=== PATIENT | female | born 2000 | race Two or more races ===

== ENCOUNTER 2023-03-21 18:00 | Inpatient (IN) | payer OTHER, SELFPAY ==
[2023-03-21 18:31] VITALS: BP 115/78; PULSE 83; TEMP 36.9
[2023-03-21 19:12] LABS: Hematocrit 33.3 % (36.0-48.0); Hemoglobin 11.3 g/dL (12.0-16.0); Mean Corpuscular HGB Conc 33.9 g/dL (29.9-35.2); Mean Corpuscular Hemoglobin 30.3 pg (26.7-34.0); Mean Corpuscular Volume 89.3 fL (81.0-99.0); Mean Platelet Volume 12.9 fL (9.5-13.5); Platelet Count 134 10^3/uL (150-450); Red Blood Count 3.73 10^6/uL (4.20-5.40); Red Cell Distribution Width 13.1 % (11.0-15.0); White Blood Count 9.2 10^3/uL (4.0-11.0)
[2023-03-21 19:21] LABS: Amphetamine Screen Urine NEGATIVE (NEGATIVE); Barbiturates Screen Urine NEGATIVE (NEGATIVE); Benzodiazepines Screen Urine NEGATIVE (NEGATIVE); Buprenorphine Screen Urine NEGATIVE (NEGATIVE); Cannabinoid Screen Urine NEGATIVE (NEGATIVE); Cocaine Screen Urine NEGATIVE (NEGATIVE); Methadone Screen Urine NEGATIVE (NEGATIVE); Methamphetamines Screen Urine NEGATIVE (NEGATIVE); Opiate Screen Urine NEGATIVE (NEGATIVE); Oxycodone Screen Urine NEGATIVE (NEGATIVE); Phencyclidine Screen Urine NEGATIVE (NEGATIVE); Tricyclic Antidepressant Urine NEGATIVE (NEGATIVE)
[2023-03-21] MEDS: 0.9 % SODIUM CHLORIDE 500 ML IV (19:25)
--- NOTE | 2023-03-21 20:05 | US_ITS ---
[address] [address] Patient Name: BRYANNA HUI MRN: [id number] date: 2000 Sex: F Assigned Patient Location: [facility] Current Patient Location: [facility] Accession/Order Number: [id number] Exam Date: 03/21/2023 20:30 Report Date: 03/21/2023 22:00 At the request of: STEPHEN BROOKS Procedure: US OB BPP wo non-stress EXAM: US OB BPP wo non-stress HISTORY: tachycardia COMPARISON: None. TECHNIQUE: Limited OB ultrasound is performed for evaluation of biophysical profile. Multiple grayscale and color images are submitted for review. FINDINGS: Single live intrauterine is seen with cephalic presentation. Biophysical profile: breathing movements: 2 Gross body movements: 2 tone: 2 Qualitative amniotic fluid volume: 2 Total biophysical profile: 8 out of 8. Amniotic fluid index measures 12.6 cm, within normal limits. heart rate is 164 beats per minute. Gestation age by dates is 40 weeks 5 days, with estimated date of delivery 03/16/2023. US/US OB BPP wo non-stress IMPRESSION: Single live intrauterine with cephalic presentation. Biophysical profile score is 8 out of 8. heart rate is 164 beats per minute. Electronically authenticated by: COOPER HOLMAN Date: 03/21/2023 22:00
--- NOTE | 2023-03-21 20:08 | P.OBHP_ITS ---
OB - H&P: HPI History of Present Illness Chief complaint: INDUCTION : 2 Para: 1 Date of last menstrual period: 06-09-22 Gestational age based on last menstrual period: 40.5 Indications for induction: other (elective IOL for post dates ) History of Present Dating criteria: LMP confirmed by 1st trimester US care: good care Ultrasounds: normal 1st trimester US and normal mid trimester US complications comment: anemia in Medical complications OB: none Labs Blood type: O (+) positive Rubella: immune RPR/VDLR: nonreactive GBS status: negative HBsAG: negative Review of Systems ROS Status of ROS 10 or more systems reviewed and unremarkable except as noted in history and below [facility] Medical History (Updated 03/21/23 @ 20:13 by STEPHEN BROOKS APRN, NORA) Surgical History (Updated 03/21/23 @ 18:37 by Anastasiya Vance RN) Meds Home Medications and Allergies Home Medications Medication Instructions Recorded Confirmed Type docusate sodium 100 mg capsule 100 mg PO DAILY 03/21/23 03/21/23 History (Colace) famotidine 20 mg tablet mg 03/21/23 History ferrous sulfate 325 mg (65 mg 325 mg PO DAILY 03/21/23 03/21/23 History iron) tablet (FeroSul) Allergies Allergy/AdvReac Type Severity Reaction Status Date / Time No Known Drug Allergies Allergy Verified 03/21/23 18:13 Exam Constitutional Vital Signs, click to edit/add: Last Vital Signs Temp 98.4 F 03/21/23 18:31 Pulse 83 03/21/23 18:31 BP 115/78 03/21/23 18:31 Documenting provider has reviewed patient's vital signs: yes Common normals: no apparent distress General appearance: cooperative Orientation/consciousness: Yes awake, Yes oriented to person, Yes oriented to place and Yes oriented to time HENMT Common normals: normocephalic Neck & C-Spine Common normals: full ROM Lymph Lymphatic: no lymphadenopathy noted Chest Common normals: inspection of chest normal Respiratory Common normals: normal respiratory effort Effort & inspection: able to speak in complete sentences Auscultation: clear to auscultation bilaterally Cardio Common normals: regular rate and regular rhythm Rate: regular rate Rhythm: regular rhythm GI Common normals: Normal to inspection, nondistended, normoactive bowel sounds present Inspection: normal to inspection Palpation: other (gravid ) Extremity Common normals: normal to inspection and full ROM Neuro Common normals: oriented x3 Sensorium/orientation: awake, alert, oriented to person, oriented to place and oriented to time Psych Common normals: mental status grossly normal, thought process normal, cooperative, affect normal and speech normal Appearance: grossly normal Attitude: calm Results Labs Labs: Short CBC 03/21/23 Range/Units 18:50 WBC 9.2 (4.0-11.0) 10^3/uL Hgb 11.3 L (12.0-16.0) g/dL Hct 33.3 L (36.0-48.0) % Plt Count 134 L (150-450) 10^3/uL OB - A/P Assessment and Plan (1) Term :
[2023-03-21] MEDS: CALCIUM CARBONATE 500 MG (200MG ELEMENTAL) TAB CHEW PO ×2 (20:19→22:48)
--- NOTE | 2023-03-21 20:37 | PM.EN ---
Event Note Event Note: RN called me earlier to report patient had elevated baseline. Orders given per telephone to give IV bolus, hold cervidil. 1940 arrived on unit to assess patient and EFM tracing.Baseline is 170's up to 180's with occasional decelerations noted. Variability is moderate. Decel type is indeterminant due to patient not dino. Patient denies contractions or pain, states since you checked me in the office today, I have felt constant cramping. patient is afebrile. [address] Robison to update him on patients EFM tracing and baseline. 2009 Stat BPP orders placed for BPP at bedside.
[2023-03-21] MEDS: DINOPROSTONE 10 MG VAG INSERT.ER VAGINAL (22:46)
--- NOTE | 2023-03-21 22:46 | PM.EN ---
Event Note Event Note: CNM to room. Category 1 EFM tracing. mom is dino irregularly and states she feels the same cramping as before. SVE fingertip, soft, -3 Cervidil placed per this provider vaginally and in posterior fornix. Patient tolerated placement well.
[2023-03-21 22:49] VITALS: BP 117/77; PULSE 96
[2023-03-21 23:04] VITALS: BP 105/64; PULSE 80
[2023-03-21 23:19] VITALS: BP 106/60; PULSE 85
[2023-03-21 23:34] VITALS: BP 107/63; PULSE 77
[2023-03-21 23:50] VITALS: BP 108/69; PULSE 82
[2023-03-22] VITALS (57 sets, daily range): BP systolic 93–176; BP diastolic 51–86; PULSE 62–120; RESP 16; TEMP 36.5
[2023-03-22] MEDS: CALCIUM CARBONATE 500 MG (200MG ELEMENTAL) TAB CHEW PO ×2 (04:28→11:25)
[2023-03-22] MEDS: OXYTOCIN/0.9 % SODIUM CHLORIDE 10 UNITS/500 ML PLAST..BAG 6 UNIT IV (12:02)
[2023-03-22] MEDS: 0.9 % SODIUM CHLORIDE 1,000 ML 125 ML IV (14:35)
[2023-03-22] MEDS: FENTANYL CITRATE/PF 100 MCG/2 ML VIAL EPIDURAL (14:35)
[2023-03-22] MEDS: ROPIVACAINE HCL/PF 400 MG/200 ML PREMIX 10 MG EPIDURAL (14:37)
--- NOTE | 2023-03-22 19:06 | PM.OBPRCVD ---
Procedure Procedure: events: Labor Induction, Labor Augmentation and Meconium Stained Fluid Intrapartal events: None Induction method: artificial rupture of membranes Delivery augmentation: rupture of membranes Delivery monitor: external FHT and external uterine Route of delivery: Episiotomy Description: none Laceration description: perineal - 2nd degree Delivery repair: Vicryl and other (Dr Robison called in to repair ) Estimated blood loss (mL): 350 Anesthesia type: Epidural Disposition: no change Infant Delivery date: 03/22/23 Gender: female presentation: vertex Placental delivery description: Spontaneous cord description: 3 Vessels heart rate - 1 minute: 100 bpm or Greater respiratory effort - 1 minute: Spontaneous/Strong Cry muscle tone - 1 minute: Active Movement reflex response - 1 minute: Minimal Response color - 1 minute: Bluish Hands or Feet total score - 1 minute: 8 heart rate - 5 minute: 100 bpm or Greater respiratory effort - 5 minute: Spontaneous/Strong Cry muscle tone - 5 minute: Active Movement reflex response - 5 minute: Prompt Response color - 5 minute: Bluish Hands or Feet total score - 5 minute: 9 Labor State Duration Labor - Stage 3 Duration: 1 minutes Total Length of Latency: 4 hours and 12 minutes
--- NOTE | 2023-03-22 20:27 | W.PC.ACHO ---
Registration Status: ADM IN Primary Language: Cuban Preferred Language: Cuban Active Medications Generic Name Dose Route Start Last Admin Trade Name Freq PRN Reason Stop Dose Admin Acetaminophen 650 mg 03/22/23 18:58 Acetaminophen 325 Mg Tablet PO Q6H PRN Mild Pain Al Hydroxide/Mg Hydroxide 2,400 mg 03/22/23 18:58 Magnesium Hydroxide 2,400 Mg/10 Ml Oral.Susp PO Q6H PRN Dyspepsia Benzocaine/Menthol 1 applic 03/22/23 18:58 Benzocaine/Menthol 85 Gram Carson Bottle TOPICAL Q2H PRN Pain Calcium Carbonate 500 mg 03/21/23 18:32 03/22/23 11:25 Calcium Carbonate 500 Mg (200mg Elemental) Tab Chew PO 500 mg TID PRN Administration Heartburn Carboprost Tromethamine 250 mcg 03/21/23 18:13 Carboprost Tromethamine 250 Mcg/Ml 1 Ml Vial IM 03/23/23 18:13 Q15M PRN Bleeding Diphenhydramine HCl 25 mg 03/22/23 14:28 Diphenhydramine Hcl 50 Mg/Ml (1ml) Vial IV 03/23/23 14:29 Q6H PRN Itching Diphtheria/Pertussis/Tetanus Vacc 0.5 ml 03/24/23 09:00 Adacel Diph,Pertuss(Acell),Tet Vac/Pf 0.5 Ml Adult Syringe IM 03/24/23 09:01 .ONCE ONE Ephedrine Sulfate 5 mg 03/22/23 14:28 Ephedrine Sulfate 50 Mg/Ml Vial IV 03/23/23 14:29 Q5M PRN Blood Pressure - Low Fentanyl Citrate 100 mcg 03/22/23 14:28 03/22/23 14:35 Fentanyl Citrate/Pf 100 Mcg/2 Ml Vial EPIDURAL 03/23/23 14:28 100 mcg Q4H PRN Administration Pain Sodium Chloride 1,000 mls @ 125 mls/hr 03/21/23 19:00 03/22/23 19:14 Sodium Chloride 0.9% 1,000 Ml IV Infused Q8H HAKAN Infusion Oxytocin/Sodium Chloride 10 units in 500 mls @ 6 mls/hr 03/22/23 12:00 03/22/23 17:25 Pitocin 10 Unit/500 Ml-Ns IV Infused Q24H HAKAN Infusion Protocol 2 MILLIUNIT/MIN Ropivacaine/Sodium Chloride 400 mg in 200 mls @ 6 mls/hr 03/22/23 14:30 03/22/23 14:37 Naropin 0.2% 400 Mg/200 Ml Bag EPIDURAL 03/23/23 14:28 10 mls/hr Q24H HAKAN 10 mls/hr Administration Oxytocin 20 unit/ Sodium 1,002 mls @ 125 mls/hr 03/22/23 19:00 Chloride IV 03/23/23 02:59 Q8H HAKAN Ibuprofen 800 mg 03/22/23 22:00 Ibuprofen 400 Mg Tablet PO TID HAKAN Lidocaine 5 ml 03/21/23 18:13 Lidocaine Viscous 2% 15 Ml Topical Solution TOPICAL Q2H PRN Pain Lidocaine 1 ml 03/21/23 18:13 Lidocaine Hcl 1% 200 Mg/20 Ml Mdv INJ Q2H PRN Pain Lidocaine 5 ml 03/22/23 14:28 Lidocaine Hcl 2% Pf 100 Mg/5 Ml Vial INJ 03/23/23 14:28 Q1H PRN numbing for epidural needle Measles/Mumps/Rubella Vaccine Live 0.5 ml 03/24/23 09:00 Measles,Mumps,Rubella Vacc/Pf 0.5 Ml Vial SQ 03/24/23 09:01 .ONCE ONE Methylergonovine Maleate 0.2 mg 03/21/23 18:13 Methylergonovine Maleate 0.2 Mg Tablet PO 03/23/23 18:13 Q4H PRN Uterine Contractility/Contract Methylergonovine Maleate 0.2 mg 03/21/23 18:13 Methylergonovine Maleate 0.2 Mg/Ml Ampule IM 03/23/23 18:13 ONCE PRN Uterine Contractility/Contract Misoprostol 600 mcg 03/21/23 18:13 Misoprostol 100 Mcg Tablet PO 03/23/23 18:13 ONCE PRN Uterine Bleeding Misoprostol 800 mcg 03/21/23 18:13 Misoprostol 100 Mcg Tablet SL 03/23/23 18:13 ONCE PRN Uterine Bleeding Misoprostol 1,000 mcg 03/21/23 18:13 Misoprostol 100 Mcg Tablet AL 03/23/23 18:13 ONCE PRN Uterine Bleeding Naloxone HCl 0.4 mg 03/22/23 14:28 Naloxone Hcl 0.4 Mg/Ml Vial IV 03/23/23 14:29 ONCE PRN resp depression Ondansetron HCl 4 mg 03/21/23 18:13 Ondansetron Pf 4 Mg/2 Ml Vial IV Q6H PRN Nausea And Vomiting Ondansetron HCl 4 mg 03/21/23 18:13 Ondansetron 4 Mg Rapdis Tablet SL Q6H PRN Nausea And Vomiting Oxytocin 10 unit 03/21/23 18:13 Oxytocin 10 Unit/Ml Vial IM 03/23/23 18:13 ONCE PRN Bleeding Simethicone 80 mg 03/22/23 18:58 Simethicone 80 Mg Tab.Chew PO QID PRN Abdominal Distention Temazepam 15 mg 03/22/23 18:58 Temazepam 15 Mg Capsule PO QHS PRN Sleep Witch Ni/Glycerin 1 pad 03/22/23 18:58 Glycerin/Witch Ni Pads TOPICAL Q2H PRN Pain Zolpidem Tartrate 5 mg 03/21/23 18:32 Zolpidem Tartrate 5 Mg Tablet PO QHS PRN insomnia Diet Category Date Time Status Regular Consistency Diet Diet 03/22/23 Dinner Active Renal Bladder Pattern Continent Catheter Date Urinary Catheter Removed 03/22/23 Date Urinary Catheter Removed 03/22/23 Date Urinary Catheter Removed 03/22/23
[2023-03-22] MEDS: IBUPROFEN 400 MG TABLET 800 MG PO (23:21)
[2023-03-23 06:05] LABS: Basophils Percent Auto 0.2 % (0.2-2.0); Eosinophils Percent Auto 0.4 % (0.9-7.0); Hematocrit 32.4 % (36.0-48.0); Hemoglobin 10.6 g/dL (12.0-16.0); Immature Granulocytes Abs Auto 0.06 10^3/uL (0.00-0.03); Immature Granulocytes Pct Auto 0.5 % (0.0-0.5); Lymphocytes Absolute Auto 1.6 10^3/uL (1.2-3.8); Lymphocytes Percent Auto 14.5 % (20.5-60.0); Mean Corpuscular HGB Conc 32.7 g/dL (29.9-35.2); Mean Corpuscular Hemoglobin 29.8 pg (26.7-34.0); Mean Platelet Volume 12.5 fL (9.5-13.5); Monocytes Absolute Auto 0.7 10^3/uL (0.3-0.8); Monocytes Percent Auto 6.7 % (1.7-12.0); Neutrophils Absolute Auto 8.6 10^3/uL (1.4-6.5); Neutrophils Percent Auto 77.7 % (43.0-75.0); Platelet Count 124 10^3/uL (150-450); Red Blood Count 3.56 10^6/uL (4.20-5.40); Red Cell Distribution Width 12.9 % (11.0-15.0); White Blood Count 11.1 10^3/uL (4.0-11.0)
[2023-03-23] MEDS: IBUPROFEN 400 MG TABLET 800 MG PO ×3 (07:15→23:07)
--- NOTE | 2023-03-23 07:50 | P.OBPN_ITS ---
OB - PN: Subj Subjective Patient comments: no complaints and pain well controlled Isabella status: doing well Exam Constitutional Vital Signs, click to edit/add: Last Vital Signs Temp 97.7 F 03/22/23 23:24 Pulse 93 H 03/22/23 23:19 Resp 16 03/22/23 23:21 BP 106/52 03/22/23 23:19 O2 Del Method Room Air 03/22/23 23:21 Documenting provider has reviewed patient's vital signs: yes Common normals: no apparent distress Respiratory Common normals: normal respiratory effort and clear to auscultation bilaterally Cardio Common normals: regular rate and regular rhythm GI Common normals: Normal to inspection, nondistended, normoactive bowel sounds present Extremity Common normals: no clubbing, cyanosis or edema and no calf tenderness Results Labs Labs: Short CBC 03/23/23 Range/Units 05:50 WBC 11.1 H (4.0-11.0) 10^3/uL Hgb 10.6 L (12.0-16.0) g/dL Hct 32.4 L (36.0-48.0) % Plt Count 124 L (150-450) 10^3/uL OB - PN: A/P Assessment and Plan (1) Term : Plan - Vaginal Delivery day: 1 Plan: routine care Time Spent with Patient Time: Total time spent is greater than 50% in coordination of care (as documented) at patient's floor/unit and/or counseling patient: Total time spent with greater than 50% in coordination of care (as documented) at patient's floor/unit and/or counseling patient: less than 15 minutes
[2023-03-23 08:53] VITALS: BP 134/75; PULSE 75
[2023-03-23 09:02] VITALS: RESP 16; TEMP 36.7
--- NOTE | 2023-03-23 10:29 | PM.OBPN ---
OB - PN: Subj Subjective Patient comments: no complaints and pain well controlled status: doing well Exam Constitutional Vital Signs, click to edit/add: Last Vital Signs Temp 98.1 F 03/23/23 09:02 Pulse 75 03/23/23 08:53 Resp 16 03/23/23 09:02 BP 134/75 03/23/23 08:53 O2 Del Method Room Air 03/22/23 23:21 Documenting provider has reviewed patient's vital signs: yes Common normals: no apparent distress Respiratory Common normals: normal respiratory effort and clear to auscultation bilaterally Cardio Common normals: regular rate and regular rhythm GI Common normals: Normal to inspection, nondistended, normoactive bowel sounds present Extremity Common normals: no clubbing, cyanosis or edema and no calf tenderness Results Labs Labs: Short CBC 03/23/23 Range/Units 05:50 WBC 11.1 H (4.0-11.0) 10^3/uL Hgb 10.6 L (12.0-16.0) g/dL Hct 32.4 L (36.0-48.0) % Plt Count 124 L (150-450) 10^3/uL OB - PN: A/P Assessment and Plan (1) Term : Plan - Vaginal Delivery day: 1 Plan: routine care Time Spent with Patient Time: Total time spent is greater than 50% in coordination of care (as documented) at patient's floor/unit and/or counseling patient: Total time spent with greater than 50% in coordination of care (as documented) at patient's floor/unit and/or counseling patient: less than 15 minutes
[2023-03-23 18:21] VITALS: PULSE 80; RESP 16; TEMP 36.9
[2023-03-23 23:09] VITALS: BP 118/70; PULSE 79; RESP 16; TEMP 36.8
[2023-03-23 23:10] VITALS: BP 118/70; PULSE 79
[2023-03-24] MEDS: IBUPROFEN 400 MG TABLET 800 MG PO (06:27)
[2023-03-24 08:55] VITALS: BP 117/78; PULSE 105; RESP 16; TEMP 36.8
[2023-03-24 09:01] VITALS: BP 117/78; PULSE 105
--- NOTE | 2023-03-24 09:28 | PM.OBDS ---
DS: Providers Provider Date of admission: 03/21/23 18:00 Primary care physician: ROBYN FUENTES Admitting clinician: STEPHEN BROOKS Attending physician on admission: STEPHEN BROOKS Consults: 03/21/23 Consult to Anesthesiology Routine Consulting Provider: Barry Mortensen II Reason for consultation: epidural Has provider been notified: No Attending physician on discharge: STEPHEN BROOKS Discharging clinician: STEPHEN BROOKS Anticipated date of discharge: 03/24/23 DS: Diagnosis Discharge Diagnosis (1) Term : Plan discharge to home today with baby OB - DS: Summary Hospital Course Time spent discussing smoking cessation with patient: 3 to 10 minutes Complications complications: none Delivery method: spontaneous vaginal delivery Gender: female Status at Discharge Functional status at discharge: independent ambulation Overall status at discharge: patient is back to baseline Time Spent with Patient Time attestation: Total time spent providing and/or coordinating discharge services: Time spent: less than 30 minutes Exam Constitutional Vital Signs, click to edit/add: Last Vital Signs Temp 98.3 F 03/24/23 08:55 Pulse 105 H 03/24/23 09:01 Resp 16 03/24/23 08:55 BP 117/78 03/24/23 09:01 O2 Del Method Room Air 03/24/23 08:55 Documenting provider has reviewed patient's vital signs: yes Common normals: no apparent distress, average body habitus, oriented x3, no limitations, healthy appearing, alert and well nourished Neck & C-Spine Common normals: full ROM, no lymphadenopathy and supple Lymph Lymphatic: no lymphadenopathy noted Chest Common normals: inspection of chest normal Respiratory Common normals: normal respiratory effort and clear to auscultation bilaterally Cardio Common normals: regular rate and regular rhythm GI Common normals: Normal to inspection, nondistended, normoactive bowel sounds present, soft to palpation and non-tender Common normals: no CVA tenderness and external appearance normal Back & Pelvis Common normals: no CVA tenderness Extremity Common normals: normal to inspection and full ROM Neuro Common normals: oriented x3 Psych Common normals: mental status grossly normal, thought process normal, cooperative and affect normal Discharge Plan Discharge Disposition: Home, Self-Care Condition: Good Discharge Medications: New ibuprofen 400 mg Tablet 800 mg PO TID PRN (Reason: pain) 14 Days Qty: 60 0RF A.E.R. Roberta Ni 12.5-50 % Pads, Medicated 1 pad topical Q2H PRN (Reason: Pain) 14 Days Qty: 40 1RF Discontinued famotidine 20 mg tablet docusate sodium [Colace] 100 mg capsule 100 mg PO DAILY ferrous sulfate [FeroSul] 325 mg (65 mg iron) tablet 325 mg PO DAILY Forms: Portal Instructions
== END 2023-03-24 12:10 | disposition home or self-care (01) | DRG 807 ==
PROVIDERS: Admitting Provider Midwife; PCP Family Medicine; Visit Provider Midwife
DX: O48.0 Post-term pregnancy (principal); Z37.0 Single live birth; Z3A.40 40 weeks gestation of pregnancy; O76 Abnormality in fetal heart rate and rhythm complicating labor and delivery; O70.0 First degree perineal laceration during delivery; O77.0 Labor and delivery complicated by meconium in amniotic fluid; Z79.899 Other long term (current) drug therapy
CPT/HCPCS: 36415; 59050; 59410; 76819; 80307; 85025; 85027; 86850; 86900; 86901; 96365; 96366; 96376

== ENCOUNTER 2024-05-30 08:21 | Inpatient (IN) | payer OTHER, SELFPAY ==
[2024-05-30] VITALS (30 sets, daily range): BP systolic 105–180; BP diastolic 56–139; PULSE 59–81; TEMP 35.9–36.4
[2024-05-30 09:06] LABS: Hematocrit 34.1 % (36.0-48.0); Hemoglobin 11.2 g/dL (12.0-16.0); Mean Corpuscular HGB Conc 32.8 g/dL (29.9-35.2); Mean Corpuscular Hemoglobin 29.1 pg (26.7-34.0); Mean Corpuscular Volume 88.6 fL (81.0-99.0); Mean Platelet Volume 12.6 fL (9.5-13.5); Platelet Count 133 10^3/uL (150-450); Red Blood Count 3.85 10^6/uL (4.20-5.40); Red Cell Distribution Width 14.3 % (11.0-15.0); White Blood Count 9.2 10^3/uL (4.0-11.0)
[2024-05-30 09:22] LABS: Amphetamine Screen Urine NEGATIVE (NEGATIVE); Barbiturates Screen Urine NEGATIVE (NEGATIVE); Benzodiazepines Screen Urine NEGATIVE (NEGATIVE); Buprenorphine Screen Urine NEGATIVE (NEGATIVE); Cannabinoid Screen Urine NEGATIVE (NEGATIVE); Cocaine Screen Urine NEGATIVE (NEGATIVE); Methadone Screen Urine NEGATIVE (NEGATIVE); Methamphetamines Screen Urine NEGATIVE (NEGATIVE); Opiate Screen Urine NEGATIVE (NEGATIVE); Oxycodone Screen Urine NEGATIVE (NEGATIVE); Phencyclidine Screen Urine NEGATIVE (NEGATIVE); Tricyclic Antidepressant Urine NEGATIVE (NEGATIVE)
[2024-05-30] MEDS: LACTATED RINGER'S SOLUTION 1,000 ML 125 ML IV ×2 (09:38→12:26)
[2024-05-30] MEDS: OXYTOCIN/0.9 % SODIUM CHLORIDE 10 UNITS/500 ML PLAST..BAG 6 UNIT IV (09:38)
--- NOTE | 2024-05-30 10:39 | PM.EN ---
Event Note Event Note: to room to assess patient. SVE 2+/75/-2 patient was bouncing on birthing ball and states she is feeling contractions. to bed and AROM performed with sterile amni hook. return of small amount of clear odorless fluid noted. heart tones stable at 140 before, during and after rupture of membranes.
--- NOTE | 2024-05-30 10:59 | P.OBHP_ITS ---
OB - H&P: HPI History of Present Illness Chief complaint: INDUCTION : 4 Para: 2 Gestational age based on last menstrual period: 39.6 Indications for induction: other Narrative: elective induction History of Present Dating criteria: LMP confirmed by 1st trimester US complications: other (history of umbilical hernia and bariatric surgery ) Medical complications OB: other (umbilical hernia ) Labs Blood type: O (+) positive Rubella: immune RPR/VDLR: nonreactive GBS status: negative HBsAG: negative Review of Systems ROS Status of ROS: 10 or more systems reviewed and unremarkable except as noted in history and below [facility] Medical History (Updated 05/30/24 @ 11:13 by STEPHEN BROOKS APRN, NORA) Term ?Z34.90 - Encounter for supervision of normal , unspecified, unspecified trimester (ICD-10) Asthma ?J45.909 - Unspecified asthma, uncomplicated (ICD-10) FH: cholecystectomy ?Z83.79 - Family history of other diseases of the digestive system (ICD-10) Surgical History (Updated 03/21/23 @ 18:37 by Anastasiya Vance RN) History of tonsillectomy and adenoidectomy ?Z90.89 - Acquired absence of other organs (ICD-10) H/O gastric sleeve ?Z90.3 - Acquired absence of stomach [part of] (ICD-10) Social History Highest level of school completed/degree received: Bachelor's degree Little interest or pleasure in doing things: not at all Feeling down, depressed, or hopeless: not at all Meds Home Medications and Allergies Home Medications ?Medication ?Instructions ?Recorded ?Confirmed ?Type ergocalciferol (vitamin D2) 1,250 1,250 mcg PO DAILY 05/30/24 05/30/24 History mcg (50,000 unit) capsule famotidine 20 mg tablet (Acid 20 mg PO DAILY 05/30/24 05/30/24 History Technology Engineer (famotidine)) ferrous sulfate 325 mg (65 mg 325 mg PO DAILY 05/30/24 05/30/24 History iron) tablet (Feosol) Allergies Allergy/AdvReac Type Severity Reaction Status Date / Time No Known Drug Allergies Allergy Verified 03/21/23 18:13 Exam Constitutional Vital Signs, click to edit/add: Last Vital Signs Temp 97.5 F L 05/30/24 10:37 Pulse 71 05/30/24 10:36 Resp 18 05/30/24 09:08 BP 135/91 05/30/24 10:36 Common normals: no apparent distress HENMT Common normals: normocephalic Eye Common normals: EOMs intact bilaterally General eye: normal appearance of both eyes Neck & C-Spine Common normals: full ROM Lymph Lymphatic: no lymphadenopathy noted Chest Common normals: inspection of chest normal Respiratory Common normals: normal respiratory effort and clear to auscultation bilaterally Cardio Common normals: regular rate and regular rhythm Rate: regular rate Rhythm: regular rhythm GI Common normals: Normal to inspection, nondistended, normoactive bowel sounds present Inspection: normal to inspection Common normals: no CVA tenderness Back & Pelvis Common normals: no CVA tenderness Extremity Common normals: normal to inspection Neuro Common normals: oriented x3 Sensorium/orientation: awake, alert, oriented to person, oriented to place and oriented to time Psych Common normals: mental status grossly normal, thought process normal, cooperative, affect normal, speech normal, activity/motor behavior normal, denie s hallucinations, denies homicidal ideation and denies suicidal ideation Appearance: grossly normal Results Labs Labs: Short CBC 05/30/24 Range/Units 08:46 WBC 9.2 (4.0-11.0) 10^3/uL Hgb 11.2 L (12.0-16.0) g/dL Hct 34.1 L (36.0-48.0) % Plt Count 133 L (150-450) 10^3/uL OB - A/P Assessment and Plan (1) Term : Plan admit to labor and delivery for elective induction. routine pitocin orders
[2024-05-30] MEDS: ROPIVACAINE HCL/PF 400 MG/200 ML PREMIX 8 MG EPIDURAL (12:27)
--- NOTE | 2024-05-30 15:15 | PM.OBPRCVD ---
Procedure Procedure: Intrapartal events: None Induction method: per pitocin protocol Delivery augmentation: rupture of membranes Delivery monitor: external FHT and external uterine Route of delivery: Episiotomy Description: none L&D Laceration Description: none Estimated blood loss (mL): 75 Anesthesia type: Epidural Infant Delivery date: 05/30/24 Gender: female presentation: vertex Placental delivery description: Spontaneous cord description: 3 Vessels heart rate - 1 minute: 100 bpm or Greater respiratory effort - 1 minute: Spontaneous/Strong Cry muscle tone - 1 minute: Active Movement reflex response - 1 minute: Prompt Response color - 1 minute: Bluish Hands or Feet total score - 1 minute: 9 heart rate - 5 minute: 100 bpm or Greater respiratory effort - 5 minute: Spontaneous/Strong Cry muscle tone - 5 minute: Active Movement reflex response - 5 minute: Prompt Response color - 5 minute: Bluish Hands or Feet total score - 5 minute: 9
[2024-05-30] MEDS: ACETAMINOPHEN 500 MG TABLET 1000 MG PO (18:16)
[2024-05-31] MEDS: ACETAMINOPHEN 500 MG TABLET 1000 MG PO ×3 (02:55→16:46)
[2024-05-31 08:49] VITALS: BP 132/81; PULSE 82; TEMP 36.3; TEMP 36.4
--- NOTE | 2024-05-31 09:37 | PM.OBPN ---
OB - PN: Subj Subjective Patient comments: no complaints [place] status: doing well feeding status: exclusively Exam Constitutional Vital Signs, click to edit/add: Last Vital Signs Temp 97.6 F 05/31/24 08:49 Pulse 82 05/31/24 08:49 Resp 18 05/31/24 08:49 BP 132/81 05/31/24 08:49 O2 Del Method Room Air 05/31/24 08:49 Documenting provider has reviewed patient's vital signs: yes Common normals: no apparent distress, average body habitus, oriented x3, no limitations, healthy appearing, alert and well nourished HENMT Common normals: normocephalic Eye Common normals: EOMs intact bilaterally General eye: normal appearance of both eyes Neck & C-Spine Common normals: full ROM Lymph Lymphatic: no lymphadenopathy noted Chest Common normals: inspection of chest normal Respiratory Common normals: normal respiratory effort Effort & inspection: able to speak in complete sentences Cardio Common normals: regular rate and regular rhythm Rate: regular rate Rhythm: regular rhythm GI Common normals: Normal to inspection, nondistended, normoactive bowel sounds present Inspection: normal to inspection Palpation: soft Common normals: no CVA tenderness Back & Pelvis Thoracic spine/upper back: normal to inspection Lumbar spine/lower back: normal to inspection Extremity Common normals: normal to inspection General: normal exam except as noted Neuro Common normals: oriented x3 Sensorium/orientation: awake, alert, oriented to person, oriented to place and oriented to time Psych Common normals: mental status grossly normal, thought process normal, cooperative, affect normal, speech normal, activity/motor behavior normal, denies hallucinations, denies homicidal ideation and denies suicidal ideation Attitude: calm Activity/motor behavior: appropriate eye contact Speech: normal speech Thought process: normal thought process OB - PN: A/P Assessment and Plan (1) Term : Plan - Vaginal Delivery day: 1 Plan: discharge home Time Spent with Patient Time: Total time spent is greater than 50% in coordination of care (as documented) at patient's floor/unit and/or counseling patient: Total time spent with greater than 50% in coordination of care (as documented) at patient's floor/unit and/or counseling patient: less than 15 minutes
[2024-05-31 15:08] VITALS: BP 120/69; PULSE 72
== END 2024-05-31 18:50 | disposition home or self-care (01) | DRG 807 ==
PROVIDERS: Admitting Provider Midwife; PCP Family Medicine; Visit Provider Midwife
DX: O99.844 Bariatric surgery status complicating childbirth (principal); Z37.0 Single live birth; Z3A.39 39 weeks gestation of pregnancy
CPT/HCPCS: 36415; 51701; 59050; 59410; 80307; 85027; 86850; 86900; 86901; J2795

== ENCOUNTER 2025-04-11 10:54 | Outpatient (OUT) | payer OTHER, SELFPAY ==
--- OUTSIDE RECORDS SUMMARY | 2024-06-05 09:30 | XMS_ITS ---
Author Organization [facility] Address [address] [place] [id number] Care Team Providers Care Wound Nurse Name Role Phone Digna Nascimento Devaughn [phone] REASON FOR VISIT Recall (A) (25) Social History Sex Assigned At : Social History Observation Description Sex Assigned At Female Encounters Encounter Location Date Provider Diagnosis [facility] [address] [place] [id number] 06/05/2024 Digna Nascimento Plan Of Treatment Next Appt Details Provider Name:Digna nielsen, 05/21/2025 02:30:00 PM, [address] [place] [address], [id number], Progress Notes * Jen HOWE MDOB: 8 (24 yo F)Acc No.[id number]:06/05/2024 Patient: Trace Jen BOOTHE Provider: Annie Nascimento DDS :2000 A ge:23 Y S ex:Female Date:06/05/2024 Address:[address] [place] [phone] Subjective: * Chief Complaints: * 1 . Recall (A) (25). * Medical History: Objective: * Vitals: Assessment: Plan: * Treatment: * Billing Information: * Visit Code: * Procedure Codes: * Electronic signature of Melita Nascimento DDS on 04/11/2025 at 10:58 AM EDT Sign off status: Pending * Provider: Annie Nascimento DDS Date: 1 08/05/2023 Generated for Kathe shultz/Keagan/Sean on: 0 04/11/2025 10:58 AM EDT
--- OUTSIDE RECORDS SUMMARY | 2024-10-18 09:45 | XMS_ITS ---
Author Organization [facility]ices Address [address] [place] [phone] Care Team Providers Care Bracelet Former Name Role Phone Digna Nascimento Devaughn [phone] REASON FOR VISIT Recall (A) () Social History Sex Assigned At : Social History Observation Description Sex Assigned At Female Encounters Encounter Location Date Provider Diagnosis [facility] [address] [place] [phone] 10/18/2024 Digna Nascimento Plan Of Treatment Next Appt Details Provider Name:Digna nielsen, 05/21/2025 02:30:00 PM, [address] [place] [address], [id number], Progress Notes * Jen HOWE MDOB: 8 (24 yo F)Acc No.[id number]:10/18/2024 Patient: Trace Jen BOOTHE Provider: Annie Nascimento DDS :2000 A ge:24 Y S ex:Female Date:10/18/2024 Address:[address] [place] [phone] Subjective: * Chief Complaints: * 1 . Recall (A) (26). * Medical History: Objective: * Vitals: Assessment: Plan: * Treatment: * Billing Information: * Visit Code: * Procedure Codes: * Electronic signature of Melita Nascimento DDS on 04/11/2025 at 10:58 AM EDT Sign off status: Pending * Provider: Annie Nascimento DDS Date: 0 10/18/2024 Generated for Kathe shultz/Keagan/Sean on: 0 04/11/2025 10:58 AM EDT
--- OUTSIDE RECORDS SUMMARY | 2025-04-02 10:30 | XMS_ITS | Encounter Summary ---
Author Organization [facility] Healthcare Address [address] [place] [address] Care Team Providers Care Computer Peripheral Equipment Operator Name Role Phone Zeina Tripp CN Unavailable [phone] Martha Woodruff MD Primary Care Provider [phone] Reason for Visit * Reason Comments Initial Visit Encounter Details Date Type Department Care Team (Late st Contact Info) Description 04/02/2025 10:30 AM EDT Initial [facility] O[facility] [address] [place] [phone] Zeina Tripp, [facility] [address] [place], [place] [id number] [place]: 8w4d Social History Tobacco Use Types Packs/Day Years Used Date Smoking Tobacco: Never Smokeless Tobacco: Never Alcohol Use Standard Drinks/Week Comments Never 0 (1 standard drink = 0.6 oz pur e alcohol) Caffeine: 1-2 soda's, tea/week [place] Depression Scale Answer Date Recorded [place] Depression Scale Total 0 07/11/2024 The thought of harming myself has occurred to me . Never 07/11/2024 Estimated Date of Delivery Comme nts Yes 11/08/2025 Based on last me nstrual period of 02/01/2025 (Exact Date) Sex and Gender Information Value Date Recorded Sex Assigned at Female 12/20/2022 10:51 PM EDT Legal Sex Female 6:57 PM EDT Gender Identity Female 12/20/2022 10:51 PM EDT Sexual Orientation Not on file documented as of this encounter Last Filed Vital Signs Vital Sign Reading Time Taken Comments Blood Pressure - - Pulse - - Temperature - - Respiratory Rate - - Oxygen Saturation - - Inhaled Oxygen Concentration - - Weight 98.9 kg (218 lb) 04/02/2025 10:39 AM EDT Height - - Body Mass Index 35.19 03/29/2024 4:13 PM EDT documented in this encounter Progress Notes * Zeina Tripp CNM - 04/02/2025 10:30 AM EDT Subjective Jen Howe is a 24 y.o. at 8w4d with a working estimated date of delivery of 11/08/2025,by Last Menstrual Period who presents for an initial visit. This is unplanned. Patient Care Team: Martha Woodruff MD as PCP - General (Family Medicine) Zeina Tripp CNM (Obstetrics and Gynecology) OB History Para Term AB Living 6 4 4 0 1 3 SAB IAB Ectopic Multiple Live Births 1 0 0 0 3 # Outcome Date GA Lbr Casey/2nd Weight Sex Type Anes PTL Lv 6 Current 5 Term 05/30/24 8 lb F Vag-Spont LILIANE 4 Term 03/22/23 40w6d 7 lb 10 oz F Vag-Spont LILIANE 3 Term 07/12/21 Vag-Spont LILIANE 2 Term Vag-Spont 1 SAB Obstetric Comments Periods: irregular sometimes, normal blood loss and sometimes I pass clots Menstruation: [noted 11/24/22] Time since last period: 1-2 months Time between periods: irregular Lasts: 2-7 days Pad/tampon use/day:1-3 Character: with moderate pain Her is complicated by: Patient referred by Gynecology History Last Pap 05/01/24 normal The following portions of the chart were reviewed this encounter and updated as appropriate: Review of Systems Objective Physical Exam Weight: 218 lb Expected Total Weight Gain: 11 lb-19 lb Pregravid BMI: 35.20 Urine protein Urine glucose Labs Assessment/Plan Diagnoses and all orders for this visit: examination or test, positive result ([facility]) - hCG, quantitative, ; Future - hCG, quantitative, ; Future - hCG, quantitative, ; Future No sac noted and no embryo seen at this time. We will order quants and repeat US in 2 weeks. Patient education provided and PVU documented in this encounter Plan of Treatment Not on file documented as of this encounter Procedures Procedure Name Priority Date/Time Associated Diagnosis Comments HCG, TOTAL, QN Routine 04/08/2025 9:28 AM EDT examination or test, positive result ([facility]HS-HCC) HCG, TOTAL, QN Routine 04/04/2025 8:14 AM EDT examination or test, positive result ([facility]HS-HCC) HCG, TOTAL, QN Routine 04/02/2025 11:12 AM EDT examination or test, positive result ([facility]-HCC) documented in this encounter Results * (ABNORMAL) hCG, quantitative, (04/08/2025 9:28 AM EDT) HCG, TOTAL, QN 61,642(H) mIU/mL [facility] Comment: Reference Range Non or premenopausal <5 Postmenopausal <10 Values from different assay methods may vary. The use of this assay to monitor or to diagnose patients with cancer or any condition unrelated to has not been cleared or approved by the FDA or the mangle feeder of the assay. Blood Venous blood specimen / Unknown 04/08/2025 9:28 AM EDT 04/08/2025 5:04 PM EDT Narrative Resulting Agency Comment Performing Organization Information Site ID: QPT Name: [facility] [facility] Address: [address] [place] [address], [address] [place] [phone] Director: Gustavo Altman MD us Zeina Tripp CNM LAB BLOOD ORDERABLES Final R esult [facility] * (ABNORMAL) hCG, quantitative, (04/04/2025 8:14 AM EDT) HCG, TOTAL, QN 62,348(H) mIU/mL [facility] Comment: Verified by repeat analysis. Reference Range Non or premenopausal <5 Postmenopausal <10 Values from different assay methods may vary. The use of this assay to monitor or to diagnose patients with cancer or any condition unrelated to has not been cleared or approved by the FDA or the mangle feeder of the assay. Blood Venous blood specimen / Unknown 04/04/2025 8:14 AM EDT 04/04/2025 3:57 PM EDT Narrative Resulting Agency Comment Performing Organization Information Site ID: QPT Name: [employer] [facility] Address: [address] [place] [address], [address] [place] [phone] Director: Gustavo Altman MD [facility] LAB BLOOD ORDERABLES Final R esult Performing Organization Address [facility] Co de Phone Number [facility] * (ABNORMAL) hCG, quantitative, (04/02/2025 11:12 AM EDT) HCG, TOTAL, QN 61,542(H) mIU/mL [facility] Comment: Verified by repeat analysis. Reference Range Non or premenopausal <5 Postmenopausal <10 Values from different assay methods may vary. The use of this assay to monitor or to diagnose patients with cancer or any condition unrelated to has not been cleared or approved by the FDA or the mangle feeder of the assay. Blood Venous blood specimen / Unknown 04/02/2025 11:12 AM EDT 04/02/2025 11:12 AM EDT Narrative Resulting Agency Comment Performing Organization Information Site ID: QPT Name: [employer] [facility] Address: [address] [place] [address], [address] [place] [phone] Director: Gustavo Altman MD [place] LAB BLOOD ORDERABLES Final R esult Performing Organization Address [facility] Co de Phone Number [facility] documented in this encounter Visit Diagnoses Diagnosis examination or test, positive result ([facility]) examination or test, positive result documented in this encounter Care Teams Computer Peripheral Equipment Operator Relationship Specialty Start Date End Date Wonderly, Martha Valencia MD [address] [place] [address] PCP - General Family Medicine 12/21/22 Zeina Tripp CNM [address] [place] [address] Obstetrics and Gynecology 12/21/22 documented as of this encounter
--- OUTSIDE RECORDS SUMMARY | 2025-04-02 11:00 | XMS_ITS | Encounter Summary ---
Author Organization [facility] Healthcare Address [address] [place] [address] Care Team Providers Care Machine Designer Name Role Phone Zeina Tripp Toni CNM Unavailable [phone] Martha Woodruff MD Primary Care Provider [phone] Encounter Details Date Type Department Care Team (Latest Contact Info) Description 04/02/2025 11:00 AM EDT Ancillary Procedure [facility] [address] [place] [address] Amenorrhea; examination or test, positive result ([facility]) Social History Tobacco Use Types Packs/Day Years Used Date Smoking Tobacco: Never Smokeless Tobacco: Never Alcohol Use Standard Drinks/Week Comments Never 0 (1 standard drink = 0.6 oz pur e alcohol) Caffeine: 1-2 soda's, tea/week [place] Depression Scale Answer Date Recorded [place] Depression Scale Total 0 07/11/2024 The thought [...] on file documented as of this encounter Plan of Treatment Not on file documented as of this encounter Procedures Procedure Name Priority Date/Time Associated Diagnosis Comments US OB < 14 WEEKS EARLY Routine 04/02/2025 11:18 AM EDT Amenorrhea examination or test, positive result ([facility]) documented in this encounter Results * US OB less than 14 weeks early (04/02/2025 11:18 AM EDT) Anatomical Region Laterality Modality Body Ultrasound 04/02/2025 12:0 0 PM EDT Impressions 04/02/2025 12:54 PM EDT Endometrial fluid collection upper body/fundus, neighboring fluid within the endometrial canal, closed cervix, no evidence of a viable intrauterine (at this time). Correlate with beta hCG, follow up imaging as clinically indicated. TRANSCRIBED BY: ELECTRONICALLY SIGNED BY: Edin Mead MD Narrative 04/02/2025 12:54 PM EDT FINDINGS: No viable intrauterine pole or evidence of yolk sac formation. Intrauterine fluid collection upper body/fundus (3.0 x 4.0 x 1.0 cm) with a hyperechogenic rim though not typical of a normal appearing double decidual reaction. Small amount of endometrial fluid extending into the endocervical region, closed cervix 4.0 cm length. No adnexal mass. No pelvic fluid. Procedure Note Edin Mead MD - 04/02/2025 FINDINGS: No viable intrauterine pole or evidence of yolk sac formation.Intrauterine fluid collection upper body/fundus (3.0 x 4.0 x 1.0 cm) witha hyperechogenic rim though not typical of a normal appearing doubledecidual reaction. Small amount of endometrial fluid extending into theendocervical region, closed cervix 4.0 cm length. No adnexal mass. No pelvic fluid. IMPRESSION: Endometrial fluid collection upper body/fundus, neighboring fluid withinthe endometrial canal, closed cervix, no evidence of a viable intrauterinepregnancy (at this time). Correlate with beta hCG, follow up imaging asclinically indicated. TRANSCRIBED BY: ELECTRONICALLY SIGNED BY: Edin Mead MD us Zeina Tripp CNM IMG OB US PROCEDURES Final R esult documented in this encounter Visit Diagnoses Diagnosis Amenorrhea Absence of menstruation examination or test, positive result ([facility]) examination or test, positive result documented in this encounter Care Teams Machine Designer Relationship Specialty Start Date End Date Martha Woodruff MD [address] [place] [address] PCP - General Family Medicine 12/21/22 Zeina Trpip CNM [address] [place] [address] Obstetrics and Gynecology 12/21/22 documented as of this encounter
--- OUTSIDE RECORDS SUMMARY | 2025-04-10 08:10 | XMS_ITS | Encounter Summary ---
Author Organization [facility] Address [address] [place] [address] Care Team Providers Care Facing Machine Operator Name Role Phone Zeina Tripp CNM Unavailable [phone] Martha Woodruff MD Primary Care Provider [phone] Encounter Details Date Type Department Care Team (Late st Contact Info) Description 04/10/2025 8:10 AM EDT Office Visit [facility] [address] [place] [address] Darci Robison DO [address] [place] Jimenez, [place] [phone] Miscarriage ([facility]); Elevated serum hCG Social History Tobacco Use Types Packs/Day Years Used Date Smoking Tobacco: Never Smokeless Tobacco: Never Alcohol Use Standard Drinks/Week Comments Never 0 (1 standard drink = 0.6 oz pur e alcohol) Caffeine: 1-2 soda's, tea/week [place] Depression Scale Answer Date Recorded [place] Depression Scale Total 0 07/11/2024 The thought [...] on file documented as of this encounter Progress Notes * Ju Adams, MAREK - 04/10/2025 8:10 AM EDT Reason for Appointment: Patient ID: Jen Howe is a 24 y.o. female who presents for No chief complaint on file. Patient presents today via telephone call for a telehealth appointment. Patients Phone #: [phone] (mobile) Date: 04/10/2025 Time: 10:12 AM of the visit Platform Used: Audio call performed via in house telephone system. Location of Patient and Provider: Patient at home, provider at clinic Consent for Telehealth: Patient provided verbal consent to conduct the visit virtually via audio only phone call Current Medications: currently has no medications in their medication list. Medical History: Active Ambulatory Problems Diagnosis Date Noted No Active Ambulatory Problems Resolved Ambulatory Problems Diagnosis Date Noted No Resolved Ambulatory Problems Past Medical History: Diagnosis Date Allergic rhinitis Asthma (HCC) Environmental allergies IgA deficiency (HCC) Pityriasis Vitiligo Family History Problem Relation Name Age of Onset Hypothyroidism Mother No Known Problems Sister No Known Problems Sister Diabetes Maternal Grandmother Diabetes Paternal Grandmother Diabetes Father's Brother Thyroid disease Father's Sister Lupus Father's Sister No Known Problems Son Social History Tobacco Use Smoking status: Never Smokeless tobacco: Never Vaping Use Vaping status: Never Used Substance Use Topics Alcohol use: Never Comment: Caffeine: 1-2 soda's, tea/week Drug use: Never Past Surgical History: Procedure Laterality Date BARIATRIC SURGERY 01/22/2020 laproscopic gastric sleeve - [facility] EGD 02/2017 Dr. Robin [place] LAP,CHOLECYSTECTOMY 06/07/2017 Dr. Castillo TONSILLECTOMY WISDOM TOOTH EXTRACTION No Known Allergies Vitals: Estimated body mass index is 35.19 kg/m?? as calculated from the following: Height as of 03/29/24: 5' 6 . Weight as of 04/02/25: 218 lb. BP: Patient's last menstrual period was 02/01/2025 (exact date). Assessment/Plan Encounter Diagnoses Name Primary? Miscarriage ([facility]HS-HCC) Elevated serum hCG Pt was called to discuss ultrasound, no pole noted, hcg noted at 31,000. Discussed all options with pt in detail. Suction D&C with ultrasound prior. Pt will send contents removed to pathology to R/O molar . Pt not bleeding at this time. Pt to be scheduled for suction D&C on Tuesday. Pt voiced understanding. Today's telehealth visit consisted of spending 10 minutes talking to patient on the phone. Documented by Ju Adams LPN on behalf of: Darci Robison DO documented in this encounter Plan of Treatment Not on file documented as of this encounter Visit Diagnoses Diagnosis Miscarriage ([facility]) Unspecified spontaneous without mention of complication Elevated serum hCG documented in this encounter Care Teams Facing Machine Operator Relationship Specialty Start Date End Date Martha Woodruff MD [address] [place] [address] PCP - General Family Medicine 12/21/22 Zeina Tripp CNM [address] [place] [address] Obstetrics and Gynecology 12/21/22 documented as of this encounter
--- OUTSIDE RECORDS SUMMARY | 2025-04-11 10:58 | XMS_ITS | Encounter Summary ---
Author Organization [facility] Address [address] [place] [address] Care Team Providers Care Multiple Games Dealer Name Role Phone Zeina Trpip CNM Unavailable [phone] Martha Woodruff MD Primary Care Provider [phone] Encounter Details Date Type Department Care Team (Late st Contact Info) Description 12/22/2022 Orders Only [facility] OBGYN [address] [place] [phone] Zeina Tripp [facility] [address] [place], [place] [phone] Anemia in , third trimester ([facility]) Social History Tobacco Use Types Packs/Day Years Used Date Smoking Tobacco: Never Smokeless Tobacco: Never Alcohol Use Standard Drinks/Week Comments Never 0 (1 standard drink = 0.6 oz pur e alcohol) Comments Yes Sex and Gender Information Value Date Recorded Sex Assigned at Female 12/20/2022 10:51 PM EDT Legal Sex Female 6:57 PM EDT Gender Identity Female 12/20/2022 10:51 PM EDT Sexual Orientation Not on file documented as of this encounter Plan of Treatment Not on file documented as of this encounter Visit Diagnoses Diagnosis Anemia in , third trimester ([facility]) documented in this encounter Care Teams Multiple Games Dealer Relationship Specialty Start Date End Date Martha Woodruff MD [address] [place] [address] PCP - General Family Medicine 12/21/22 Zeina Tripp CNM [address] [place] [address] Obstetrics and Gynecology 12/21/22 documented as of this encounter
--- OUTSIDE RECORDS SUMMARY | 2025-04-11 10:58 | XMS_ITS | Encounter Summary ---
Author Organization [facility] Address [address] [facility] [place] [address] Care Team Providers Care Administration Intern Name Role Phone Zeina Tripp CNM Unavailable [phone] Martha Woodruff MD Primary Care Provider [phone] Encounter Details Date Type Department Care Team (Latest Contact Info) Description 04/02/2025 Travel Social History Tobacco Use Types Packs/Day Years Used Date Smoking Tobacco: Never Smokeless Tobacco: Never Alcohol Use Standard Drinks/Week Comments Never 0 (1 standard drink = 0.6 oz pur e alcohol) Caffeine: 1-2 soda's, tea/week [place] Depression Scale Answer Date Recorded [place] Depression Scale Total 0 07/11/2024 The thought [...] documented as of this encounter Visit Diagnoses Not on filedocumented in this encounter Care Teams Administration Intern Relationship Specialty Start Date End Date Martha Woodruff MD [address] [facility] [place] [address] PCP - General Family Medicine 12/21/22 Zeina Tripp CNM [address] [place] [address] Obstetrics and Gynecology 12/21/22 documented as of this encounter
--- OUTSIDE RECORDS SUMMARY | 2025-04-11 10:58 | XMS_ITS | Clinical Summary ---
Author Organization [facility] Address [address], [address] [place] [address] Care Team Providers Care Salesperson Driver Name Role Phone Martha Woodruff MD Primary Care Provider [phone] Allergies No known active allergies Medications ferrous sulfate (IRON 325) 325 (65 Fe) MG tablet Take 325 mg by mouth 2 times daily Active Vit-Fe Fumarate-FA ( VITAMINS PO) Take by mouth daily Active ibuprofen (ADVIL;MOTRIN) 800 MG tablet Take 1 tablet by mouth every 8 hours 60 tablet 1 Active docusate sodium (COLACE) 100 MG capsule Take 1 capsule by mouth 2 times daily as needed for Constipation 60 capsule 1 Active Active Problems Problem Noted Date Diagnosed Date Spontaneous vaginal delivery 07/13/2021 Term 07/12/2021 Normal labor Family History Medical History Relation Name Comments High Blood Pressure Other maternal Mom Other Other maternal Mom Relation Name Status Comments Other maternal Mom Alive Social History Tobacco Use Types Packs/Day Years Used Date Smoking Tobacco: Never Smokeless Tobacco: Never Alcohol Use Standard Drinks/Week Comments Not Currently 0 (1 standard drink = 0.6 oz pur e alcohol) [employer] Depression Scale Answer Date Recorded Last EPDS Total Score Not on file 07/13/2021 The thought of harming myself has occurred to me . Never 07/13/2021 Comments No Sex and Gender Information Value Date Recorded Sex Assigned at Not on file Legal Sex Female 8:18 AM EST Gender Identity Not on file Sexual Orientation Not on file Last Filed Vital Signs Vital Sign Reading Time Taken Comments Blood Pressure 106/55 07/13/2021 7:24 AM EST Pulse 70 07/13/2021 7:24 AM EST Temperature 37.1 C (98.7 F) 07/13/2021 7:24 AM EST Respiratory Rate 16 07/13/2021 7:24 AM EST Oxygen Saturation 96% 07/12/2021 6:31 AM EST Inhaled Oxygen Concentration - - Weight 96.2 kg (212 lb) 07/11/2021 8:29 AM EST Height 167.6 cm (5' 6 ) 07/11/2021 8:29 AM EST Body Mass Index 34.22 07/11/2021 8:29 AM EST Plan of Treatment Not on file Insurance [employer] Advance Directives * Full Code (Latest Code Status on File) Date Activated Date Inactivated Comments 07/12/2021 8:25 AM 07/13/2021 5:17 PM * Full Code Date Activated Date Inactivated Comments 07/11/2021 4:16 PM 07/12/2021 8:25 AM * Full Code Date Activated Date Inactivated Comments 07/11/2021 11:02 AM 07/11/2021 4:16 PM Care Teams Salesperson Driver Relationship Specialty Start Date End Date Martha Woodruff MD [address] [place] [address] PCP - General Family Medicine 07/11/21
--- OUTSIDE RECORDS SUMMARY | 2025-04-11 10:58 | XMS_ITS | Encounter Summary ---
Author Organization [facility] Address [address] [place] [address] Care Team Providers Care Manager Gallery Name Role Phone Zeina Tripp CNM Unavailable [phone] Martha Woodruff MD Primary Care Provider [phone] Encounter Details Date Type Department Care Team (Late st Contact Info) Description 04/09/2025 Telephone [facility] [address] [place] [phone] Nohemi Otto MA [address] [place] [address] Social History Tobacco Use Types Packs/Day Years Used Date Smoking Tobacco: Never Smokeless Tobacco: Never Alcohol Use Standard Drinks/Week Comments Never 0 (1 standard drink = 0.6 oz pur e alcohol) Caffeine: 1-2 soda's, tea/week [place] Depression Scale Answer Date Recorded [place] Depression Scale Total 0 07/11/2024 The thought [...] on file documented as of this encounter Miscellaneous Notes * Telephone Encounter - Nohemi Otto MA - 04/09/2025 3:[address] Robison called pt and didn't make contact w/the patient. Dr. Robison would like for the patient to be on a televisit for tomorrow 04/10/2025 to review results of HCG and U/S along w/the next process.Dr. Robison wanted me to try and make contact w/the patient. I was able to get a hold of the patient and was advised that the doctor did call and he is sorry he was unable to speak w/her due to a delivery call. However, he would want to speak w/her tomorrow by phone to review results and next step. PVU. Pt was put on Dr. Robison's telephone schedule. documented in this encounter Plan of Treatment Not on file documented as of this encounter Visit Diagnoses Not on filedocumented in this encounter Care Teams Manager Gallery Relationship Specialty Start Date End Date Benly, Martha Valencia MD [address] [place] [address] PCP - General Family Medicine 12/21/22 Zeina Tripp CNM [address] [place] [address] Obstetrics and Gynecology 12/21/22 documented as of this encounter
--- OUTSIDE RECORDS SUMMARY | 2025-04-11 10:58 | XMS_ITS | Clinical Summary ---
Author Organization [facility] Address [address] [place] [address] Care Team Providers Care Architectural Wood Model Maker Name Role Phone Zeina Tripp CNM Unavailable [phone] Martha Woodruff MD Primary Care Provider [phone] Allergies No known active allergies Medications No known medications Active Problems Estimated Date of Delivery Comme nts Yes 11/08/2025 Based on last me nstrual period of 02/01/2025 (Exact Date) No known active problems Encounters Date Type Department Care Team Description 04/10/2025 8:10 AM EDT Office Visit [facility] [address] [place] [address] Darci Robison DO Miscarriage ([facility]); Elevated serum hCG 04/09/2025 Telephone [facility] [address] [place] [address] Nohemi Otto MA 04/09/2025 Telephone [facility] [address] [place] [address] Nohemi Otto MA 04/04/2025 Results Follow-Up [facility] [address] [place] [phone] Zeina Tripp CNM OB less than 14 weeks early 04/02/2025 11:00 AM EDT Ancillary Procedure [facility] [address] [facility] [address] [place] [address] Amenorrhea; examination or test, positive result ([facility]) 04/02/2025 10:30 AM EDT Initial [facility] [address] [facility] [place] [address] Zeina Tripp CNM [place]: 8w4d 04/02/2025 Bamboo flowsheet [facility] [address] [facility] [place] [address] Zeina Tripp CNM 04/02/2025 Travel 03/15/2025 Orders Only [facility] [address] [facility] [place] [address] Zeina Tripp CNM Amenorrhea; examination or test, positive result ([facility]) 02/20/2025 Results Follow-Up [facility] Family Medicine [address] [facility] [place] [address] Ceci Go MA MR brain wo contrast 02/20/2025 Telephone [facility] Medicine [address] [facility] [place] [address] Janell Diaz NP 02/13/2025 3:00 PM EDT Ancillary Procedure [facility] [address] [facility] [address] [place] [address] Other headache syndrome 02/13/2025 Travel from Last 3 Months Family History Medical History Relation Name Comments Diabetes Father's Brother Lupus Father's Sister Thyroid disease Father's Sister Diabetes Maternal Grandmother Hypothyroidism Mother Diabetes Paternal Grandmother No Known Problems Sister 1 No Known Problems Sister 2 No Known Problems Son Relation Name Status Comments Father Alive Father's Brother Father's Sister Maternal Grandmother Mother Alive Paternal Grandmother Sister 1 Sister 2 Son Alive Social History Tobacco Use Types Packs/Day Years Used Date Smoking Tobacco: Never Smokeless Tobacco: Never Tobacco Cessation:Counseling Given: Not Answered Alcohol Use Standard Drinks/Week Comments Never 0 (1 standard drink = 0.6 oz pur e alcohol) Caffeine: 1-2 soda's, tea/week [place] Depression Scale Answer Date Recorded [place] Depression Scale Total 0 07/11/2024 The thought [...] PM EDT Sexual Orientation Not on file Last Filed Vital Signs Vital Sign Reading Time Taken Comments Blood Pressure 120/80 07/11/2024 10:57 AM EST Pulse - - Temperature - - Respiratory Rate - - Oxygen Saturation - - Inhaled Oxygen Concentration - - Weight 98.9 kg (218 lb) 04/02/2025 10:39 AM EDT Height 167.6 cm (5' 6 ) 03/29/2024 4:13 PM EDT Body Mass Index 35.19 03/29/2024 4:13 PM EDT Plan of Treatment Health Maintenance Due Date Last Done Comments Influenza Vaccine (#1) 2025 , 05/12/2018, 05/06/2015, Additional history exists Procedures Procedure Name Priority Date/Time Associated Diagnosis Comments HCG, TOTAL, QN Routine 04/08/2025 9:28 AM EDT examination or test, positive result ([facility]) HCG, TOTAL, QN Routine 04/04/2025 8:14 AM EDT examination or test, positive result ([facility]) US OB < 14 WEEKS EARLY Routine 04/02/2025 11:18 AM EDT Amenorrhea examination or test, positive result ([facility]) HCG, TOTAL, QN Routine 04/02/2025 11:12 AM EDT examination or test, positive result ([facility]) MR BRAIN WO CONTRAST Routine 02/13/2025 3:29 PM EDT Other headache syndrome from Last 3 Months Results * (ABNORMAL) hCG, quantitative, (04/08/2025 9:28 AM EDT) Only the most recent of3 resultswithin the time period is included. HCG, TOTAL, QN 61,642(H) mIU/mL [facility] Comment: Reference Range Non or premenopausal <5 Postmenopausal <10 Values from different assay methods may vary. The use of this assay to monitor or to diagnose patients with cancer or any condition unrelated to has not been cleared or approved by the FDA or the public health social worker of the assay. Blood Venous blood specimen / Unknown 04/08/2025 9:28 AM EDT 04/08/2025 5:04 PM EDT Narrative Resulting Agency Comment Performing Organization Information Site ID: [email or web address] Name: [email or web address] [facility] Address: [address] [place] [address], [address] [place] [phone] Director: Gustavo Altman MD us Zeina [facility]PORT LAB BLOOD ORDERABLES Final R esult [facility] * US OB less than 14 weeks [...] IMG OB US PROCEDURES Final R esult * MR brain wo contrast (02/13/2025 3:29 PM EDT) Anatomical Region Laterality Modality Brain Magnetic Resonan ce 02/14/2025 11:2 5 AM EDT Impressions 02/14/2025 11:32 AM EDT No acute intracranial process. ELECTRONICALLY SIGNED BY: Leonardo Elkins DO Narrative 02/14/2025 11:32 AM EDT EXAM: MR BRAIN WO CONTRAST History: persistent headache Technique: Multiplanar multisequence MRI of the brain was performed without contrast. Comparison: Brain CT October 29, 2024 Findings: Brain volume is age-appropriate. Ventricular morphology is within normal limits. No edema, hemorrhage, mass, mass effect, midline shift, or abnormal extra-axial fluid collection. Midline structures are within normal limits. The posterior fossa is within normal limits. There is no diffusion restriction. No susceptibility artifact is identified on the gradient echo sequence. The major intracranial vascular flow voids are maintained. Cranial nerve 7/8 complexes appear grossly unremarkable. The visualized paranasal sinuses and left bilateral mastoid air cells are essentially clear. Fluid within the right mastoid air cells compatible with nonspecific mastoid air cell effusion. Procedure Note Leonardo Elkins DO - 07/24/2025 EXAM: MR BRAIN WO CONTRAST History: persistent headache Technique: Multiplanar multisequence MRI of the brain was performedwithout contrast. Comparison: Brain CT October 29, 2024 Findings: Brain volume is age-appropriate. Ventricular morphology is within normallimits. No edema, hemorrhage, mass, mass effect, midline shift, orabnormal extra-axial fluid collection. Midline structures are withinnormal limits. The posterior fossa is within normal limits. There is no diffusion restriction. No susceptibility artifact isidentified on the gradient echo sequence. The major intracranial vascular flow voids are maintained. Cranial nerve7/8 complexes appear grossly unremarkable. The visualized paranasalsinuses and left bilateral mastoid air cells are essentially clear. Fluidwithin the right mastoid air cells compatible with nonspecific mastoid aircell effusion. IMPRESSION: No acute intracranial process. ELECTRONICALLY SIGNED BY: Leonardo Elkins DO Janell Diaz NP IMG MRI PROCEDURES Final R esult from Last 3 Months Insurance [employer] Care Teams Architectural Wood Model Maker Relationship Specialty Start Date End Date Martha Woodruff MD [address] [place] [address] PCP - General Family Medicine 12/21/22 Zeina Tripp CNM [address] [place] [address] Obstetrics and Gynecology 12/21/22
--- OUTSIDE RECORDS SUMMARY | 2025-04-11 10:58 | XMS_ITS | Encounter Summary ---
Author Organization [facility] Address [address] [place] [address] Care Team Providers Care Solar Mechanical Engineer Name Role Phone Zeina Tripp CNM Unavailable [phone] Martha Woodruff MD Primary Care Provider [phone] Encounter Details Date Type Department Care Team (Late st Contact Info) Description 04/04/2025 Results Follow-Up [facility] [address] [place] [phone] Zeina Tripp, CN [address] [place], [place] [phone] OB less than 14 weeks early Social History Tobacco Use Types Packs/Day Years Used Date Smoking Tobacco: Never Smokeless Tobacco: Never Alcohol Use Standard Drinks/Week Comments Never 0 (1 standard drink = 0.6 oz pur e alcohol) Caffeine: 1-2 soda's, tea/week [place] Depression Scale Answer Date Recorded [place] Depression Scale Total 0 07/11/2024 The thought [...] on filedocumented in this encounter Care Teams Solar Mechanical Engineer Relationship Specialty Start Date End Date Martha Woodruff MD [address] [place] [address] PCP - General Family Medicine 12/21/22 Zeina rTipp CNM [address] [place] [address] Obstetrics and Gynecology 12/21/22 documented as of this encounter
--- OUTSIDE RECORDS SUMMARY | 2025-04-11 10:58 | XMS_ITS | Encounter Summary ---
Author Organization [facility] Healthcare Address [address] [place] [address] Care Team Providers Care Printer Assistant Name Role Phone Zeina Tripp CNM Unavailable [phone] Martha Woodruff MD Primary Care Provider Encounter Details Date Type Department Care Team (Late st Contact Info) Description 04/02/2025 Bamboo flowsheet [facility] OBGYN [address] [place] [address] Zeina Tripp, CN [address] [place], [place] [phone] Social History Tobacco Use Types Packs/Day Years Used Date Smoking Tobacco: Never Smokeless Tobacco: Never Alcohol Use Standard Drinks/Week Comments Never 0 (1 standard drink = 0.6 oz pur e alcohol) Caffeine: 1-2 soda's, tea/week [place] Depression Scale Answer Date Recorded [place] Depression Scale Total 0 07/11/2024 The thought [...] on filedocumented in this encounter Care Teams Printer Assistant Relationship Specialty Start Date End Date Benly, Martha Valencia MD [address] [place] [address] PCP - General Family Medicine 12/21/22 Zeina Tripp CNM [address] [facility] [place] [address] Obstetrics and Gynecology 12/21/22 documented as of this encounter
--- OUTSIDE RECORDS SUMMARY | 2025-04-11 10:58 | XMS_ITS | Encounter Summary ---
Author Organization [facility] Address [address] [place] [address] Care Team Providers Care Ribbon Lapper Tender Name Role Phone Zeina Tripp CNM Unavailable [phone] Martha Woodruff MD Primary Care Provider [phone] Encounter Details Date Type Department Care Team (Late st Contact Info) Description 03/27/2024 Orders Only [facility] OBGYN [address] [place] [address] Zeina Tripp, CNM [address] [place] [address] Pharyngitis, unspecified etiology (Primary Dx) Social History Tobacco Use Types Packs/Day Years Used Date Smoking Tobacco: Never Smokeless Tobacco: Never Alcohol Use Standard Drinks/Week Comments Never 0 (1 standard drink = 0.6 oz pur e alcohol) Caffeine: 1-2 soda's, tea/week [place] Depression Scale Answer Date Recorded [place] Depression Scale Total 3 05/03/2023 The thought of harming myself has occurred to me . Never 05/03/2023 Comments Yes Sex and Gender Information Value Date Recorded Sex Assigned at Female 12/20/2022 10:51 PM EDT Legal Sex Female 6:57 PM EDT Gender Identity Female 12/20/2022 10:51 PM EDT Sexual Orientation Not on file documented as of this encounter Plan of Treatment Not on file documented as of this encounter Visit Diagnoses Diagnosis Pharyngitis, unspecified etiology- Primary documented in this encounter Care Teams Ribbon Lapper Tender Relationship Specialty Start Date End Date Wonderly, Martha Valencia MD [address] [place] [address] PCP - General Family Medicine 12/21/22 Zeina Tripp CNM [address] [place] [address] Obstetrics and Gynecology 12/21/22 documented as of this encounter
--- OUTSIDE RECORDS SUMMARY | 2025-04-11 10:58 | XMS_ITS | Encounter Summary ---
Author Organization [facility] Address [address] [facility], [address] [place] [address] Care Team Providers Care Retail Receiving Clerk Name Role Phone Martha Woodruff MD Primary Care Provider [phone] Encounter Details Date Type Department Care Team ([facility] st Contact Info) Description 07/30/2021 FollowUp Telephone Encounter [facility] Labor and Delivery [address] [place] [address] Caterina Rodriguez, IBCLC OB Unit at [address] [place] [address] Social History Tobacco Use Types Packs/Day Years Used Date Smoking Tobacco: Never Smokeless Tobacco: Never Alcohol Use Standard Drinks/Week Comments Not Currently 0 (1 standard drink = 0.6 oz pur e alcohol) [place] Depression Scale Answer Date Recorded Last EPDS Total Score Not on file 07/13/2021 The thought of harming myself has occurred to me . Never 07/13/2021 Comments No Sex and Gender Information Value Date Recorded Sex Assigned at Not on file Legal Sex Female 8:18 AM EST Gender Identity Not on file Sexual Orientation Not on file COVID-19 Exposure Response Date Recorded In the last month, have you been in contact with someone who was confirmed or suspected to have Coronavirus / COVID-19? No / Unsure 07/11/2021 8:29 AM EST documented as of this encounter Plan of Treatment Not on file documented as of this encounter Visit Diagnoses Not on filedocumented in this encounter Care Teams Retail Receiving Clerk Relationship Specialty Start Date End Date Martha Woodruff MD [address] [place], [place] [phone] PCP - General Family Medicine 07/11/21 documented as of this encounter
--- OUTSIDE RECORDS SUMMARY | 2025-04-11 10:58 | XMS_ITS | Encounter Summary ---
Author Organization [facility] Healthcare Address [address] [place] [address] Care Team Providers Care Navy Seal Name Role Phone Zeina Tripp CNM Unavailable [phone] Martha Woodruff MD Primary Care Provider Encounter Details Date Type Department Care Team (Late st Contact Info) Description 06/01/2024 Abstract General acute hospital Family Medicine [address] [place] [address] Martha Woodruff MD Social History Tobacco Use Types Packs/Day Years Used Date Smoking Tobacco: Never Smokeless Tobacco: Never Alcohol Use Standard Drinks/Week Comments Never 0 (1 standard drink = 0.6 oz pur e alcohol) Caffeine: 1-2 soda's, tea/week [place] Depression Scale Answer Date Recorded [place] Depression Scale Total 3 05/03/2023 The thought [...] on filedocumented in this encounter Care Teams Navy Seal Relationship Specialty Start Date End Date Martha Woodruff MD [address] [place] [address] PCP - General Family Medicine 12/21/22 Zeina Tripp CNM [address] [place] [address] Obstetrics and Gynecology 12/21/22 documented as of this encounter
--- OUTSIDE RECORDS SUMMARY | 2025-04-11 10:58 | XMS_ITS | Patient Health Record ---
Author Organization Replaced By [facility] Address [address] [place], [place] [address] Care Team Providers Care Sourcing Specialist Name Role Phone Digna Nascimento Unavailable [phone] Willow Belcher Unavailable [phone] Allergies No Known Allergies Reason For Referral No Information Medications Medication SIG (Take, Route, Frequency, Duration) Notes Start Date End Date Status 10/13/2022 Not-Takin g Iron (Ferrous Sulfate) Not-Taking Vitamin D Not-Taking Social History Tobacco Use: Social History Observation Description Date Details (start date - stop date) Never Smoker NA - NA Sex Assigned At : Social History Observation Description Sex Assigned At Female Tobacco Control (Standard) Question Answer Notes Tobacco use: Nonsmoker Additional Findings: Tobacco non-user Current no nsmoker Problems Problem Type SNOMED Code ICD Code Onset Dates Problem Status W/U Status Risk Notes Problem BMI 25-29 - overweight (786042842) BMI 29.0-29.9, adult (Z68.29) Active confirmed Vital Signs Heart Rate 78 /min 12/05/2024 Blood pressure diastolic 66 mm Hg 12/05/2024 Weight-kg 102.06 kg 12/05/2024 Height 66 in 12/05/2024 Blood pressure systolic 114 mm Hg 12/05/2024 Weight 225 lbs 12/05/2024 BMI 36.31 kg/m2 12/05/2024 Encounters Encounter Location Date Provider Diagnosis Dental Main [address] [place], [place] [id number] 11/09/2024 Willow Belcher Obesity, Class II, BMI 35-39.9, isolated E66.812 ; Encounter for screening for dental disorders Z13.84 ; Encounter for dental examination and cleaning without abnormal findings Z01.20 ; Encounter for dental examination and cleaning with abnormal findings Z01.21 ; Caries of dentin K02.62 ; Dietary counseling Z71.3 and Exercise counseling Z71.82 [facility] [address] [place] [id number] 12/05/2024 Digna Nascimento Encounter for dent al examination and cleaning with abnormal findings Z01.21 and Caries of dentin K02.62 Assessments Encounter Date Diagnosis (ICD Code) Assessment Notes Treatment Notes Treatment Clinical Notes Section Notes 11/09/2024 Obesity, Class II, BMI 35-39.9, isolated (ICD-10 - E66.812) 12/05/2024 Encounter for dental examination and cleaning with abnormal findings (ICD-10 - Z01.21) 12/05/2024 Caries of dentin (ICD-10 - K02.62) 11/09/2024 Encounter for screening for dental disorders (ICD-10 - Z13.84) 11/09/2024 Encounter for dental examination and cleaning without abnormal findings (ICD-10 - Z01.20) 11/09/2024 Encounter for dental examination and cleaning with abnormal findings (ICD-10 - Z01.21) 11/09/2024 Caries of dentin (ICD-10 - K02.62) 11/09/2024 Dietary counseling (ICD-10 - Z71.3) 11/09/2024 Exercise counseling (ICD-10 - Z71.82) Plan Of Treatment Next Appt Details Provider Name:Digna nielsen, 05/21/2025 02:30:00 PM, [address] [place] [address], [phone], Insurance Providers Payer Name Payer Address Payer Phone Subscriber Number Group Number Insured Name Patient Relationship to Insured Coverage Start Date Coverage End Date [facility] [address] [place] [address] [id number] Jorge Howe Spouse - patient is the spouse of the insured
--- OUTSIDE RECORDS SUMMARY | 2025-04-11 10:58 | XMS_ITS | Encounter Summary ---
Author Organization [facility] Address [address] [place] [address] Care Team Providers Care Environmental Health Technician Name Role Phone Zeina Tripp CNM Unavailable [phone] Martha Woodruff MD Primary Care Provider [phone] Encounter Details Date Type Department Care Team (Late st Contact Info) Description 04/09/2025 Telephone [facility] [address] [place] [phone] Nohemi Otto MA [address] [place] [address] Social History Tobacco Use Types Packs/Day Years Used Date Smoking Tobacco: Never Smokeless Tobacco: Never Alcohol Use Standard Drinks/Week Comments Never 0 (1 standard drink = 0.6 oz pur e alcohol) Caffeine: 1-2 soda's, tea/week [place] Depression Scale Answer Date Recorded [place] Depression Scale Total 0 07/11/2024 The thought [...] Encounter - Nohemi Otto MA - 04/09/2025 3:04 PM EDT Pt called asking if Dr. Robison going to review her HCG labs w/her? Pt stated she is a Selam Tripp patient and that Selam is away from her office and that Dr. Robison will be the doctor that will be contacting her while she is out. Pt states she had an U/S and that there was no pole or sac. And that her HCG levels are still in the 60,000. Pt has been waiting to hear from Dr. Robison as to what is thenext step she is having to do? I advised the patient that I will let Dr. Robiosn know and someone will get back w/her. PVU documented in this encounter Plan of Treatment Not on file documented as of this encounter Visit Diagnoses Not on filedocumented in this encounter Care Teams Environmental Health Technician Relationship Specialty Start Date End Date Martha Woodruff MD [address] [place] [address] PCP - General Family Medicine 12/21/22 Zeina Tripp CNM [address] [place] [address] Obstetrics and Gynecology 12/21/22 documented as of this encounter
--- NOTE | 2025-04-11 11:40 | PM.PRESUREVA ---
History of Present Illness History of Present Illness Chief complaint: Missed Narrative: Mrs. Howe is a pleasant 24-year-old female who presents with a diagnosis of missed scheduled for a D&C with suction on 04/12/[address] Darci Robison. She reports no abdominal pain at this time and no active bleeding. Review of Systems ROS Narrative REVIEW OF SYSTEMS: Negative except as stated in HPI, ten or more systems reviewed. Constitutional: No fever, chills, weakness ENT: No sore throat or epistaxis Cardiovascular: No edema, chest pain, palpitations, or activity intolerance Respiratory: No shortness of breath, cough, or wheezing Musculoskeletal: No joint pain or swelling Gastrointestinal: No abdominal pain, constipation, diarrhea, or vomiting Genitourinary: No dysuria or hematuria Neurological: No numbness, tingling, weakness, or headache Psychiatric: No mood changes PFSH PFS Medical History (Updated 04/11/25 @ 11:48 by Daisy Hurley) Migraine ?G43.909 - Migraine, unspecified, not intractable, without status migrainosus (ICD-10) GERD (gastroesophageal reflux disease) ?K21.9 - Gastro-esophageal reflux disease without esophagitis (ICD-10) Term ?Z34.90 - Encounter for supervision of normal , unspecified, unspecified trimester (ICD-10) Asthma ?J45.909 - Unspecified asthma, uncomplicated (ICD-10) FH: cholecystectomy ?Z83.79 - Family history of other diseases of the digestive system (ICD-10) Surgical History History of tonsillectomy and adenoidectomy ?Z90.89 - Acquired absence of other organs (ICD-10) H/O gastric sleeve ?Z90.3 - Acquired absence of stomach [part of] (ICD-10) Family History (Updated 04/11/25 @ 11:16 by Daisy Hurley) Other Family history of Alzheimer's disease Family history of DVT Family history of diabetes mellitus Social History (Updated 04/11/25 @ 11:33 by Daisy Hurley) Within the past year, how often did you have a drink containing alcohol: never Score interpretation: A score less than 3 is consistent with normal alcohol consumption. Smoking status: Never smoker Non-prescribed substance use: denies use Previous occupational history: homemaker Highest level of school completed/degree received: Bachelor's degree Little interest or pleasure in doing things: not at all Feeling down, depressed, or hopeless: not at all Meds Home Medications and Allergies Home Medications ?Medication ?Instructions ?Recorded ?Confirmed ?Type famotidine 20 mg tablet 20 mg PO DAILY 04/11/25 04/11/25 History Allergies Allergy/AdvReac Type Severity Reaction Status Date / Time No Known Drug Allergies Allergy Verified 04/11/25 11:13 Exam Narrative Exam Narrative: Nurses note and vital signs reviewed and patient is not hypoxic. General: The patient appears well and in no apparent distress. Skin: Warm, dry, no pallor noted. There is no rash noted. Head: Normocephalic, atraumatic Eye: Normal conjunctiva, no drainage, EOMI. PERRL Ears, Nose, Mouth, and Throat: oral mucosa is moist. Nares patent. Mouth without vesicles. Ear canals patent. Tm's without Erythema Cardiovascular: Regular Rate and Rhythm Respiratory: Patient is in no distress, no accessory muscle use, lungs are clear to auscultation, no wheezing, rales or rhonchi Back: non-tender, no CVA tenderness bilaterally to percussion. GI: Normal bowel sounds, no tenderness to palpation, no masses appreciated. No rebound, guarding, or rigidity noted. Musculoskeletal: The patient has no evidence of calf tenderness, no pitting edema, symmetrical pulses noted bilaterally Neurological: A&O x4, normal speech Psychiatric: Cooperative Assessment and Plan Assessment and Plan (1) Missed : Plan Scheduled for D&C with suction on 04/12/[address] Darci Robison
== END 2025-04-11 10:55 | disposition home or self-care (01) ==
LOC: PST 10:55
PROVIDERS: PCP Family Medicine; Visit Provider Obstetrics & Gynecology
DX: Z01.812 Encounter for preprocedural laboratory examination (principal); Z01.818 Encounter for other preprocedural examination; O02.1 Missed abortion
CPT/HCPCS: 86850; 86900; 86901; G0463

== ENCOUNTER 2025-04-12 09:10 | Day surgery (SDC) | payer OTHER, SELFPAY ==
[2025-04-11 11:15] VITALS: PULSE 66; TEMP 36.3; O2SAT 99; BMI 35.0
[2025-04-12] VITALS (11 sets, daily range): BP systolic 109–129; BP diastolic 66–75; PULSE 65–92; TEMP 36.2–36.3; O2SAT 96–100; BMI 35.2
--- NOTE | 2025-04-12 09:15 | US_ITS ---
The [address] [address] Patient Name: BRYANNA HUI MRN: [id number] date: 2000 Sex: F Assigned Patient Location: [facility] Current Patient Location: [facility] Accession/Order Number: [id number] Exam Date: 04/12/2025 10:20 Report Date: 04/12/2025 11:18 At the request of: SAMUEL NELSON DO Procedure: US OB <= 14 weeks fetus FIRST TRIMESTER OB ULTRASOUND CLINICAL DATA: Confirm nonviable prior to D&C. COMPARISON: None The urinary bladder is empty. There is a gestational sac within the uterus with decidual reaction. There is mild hypodensity around the sac which may be related to implantation hemorrhage. No pole or gestational sac are identified. Based on the mean gestational sac size of 2.1 cm, this would correlate with an ultrasound age of 6 weeks 4 days. Patient should be 10 weeks 0 days based on last menstrual period. The ovaries were not evaluated. No free fluid is seen. US/US OB <= 14 weeks fetus IMPRESSION: EMPTY GESTATIONAL SAC WITHIN THE UTERUS. BASED ON MEAN GESTATIONAL SAC SIZE, THIS WOULD CORRELATE WITH AN ULTRASOUND AGE OF 6 WEEKS 4 DAYS. Impression dictated by: Ju Wagner M.D. 04/12/2025 11:18 AM Dictation Location: [facility] Electronically authenticated by: [id number] Y Date: 04/12/2025 11:18
[2025-04-12 09:19] LABS: Hematocrit 33.8 % (36.0-48.0); Hemoglobin 11.6 g/dL (12.0-16.0); Immature Granulocytes Abs Auto 0.02 10^3/uL (0.00-0.03); Immature Granulocytes Pct Auto 0.3 % (0.0-0.5); Lymphocytes Absolute Auto 1.8 10^3/uL (1.2-3.8); Mean Corpuscular HGB Conc 34.3 g/dL (29.9-35.2); Mean Corpuscular Hemoglobin 29.2 pg (26.7-34.0); Mean Corpuscular Volume 85.1 fL (81.0-99.0); Platelet Count 179 10^3/uL (150-450); Red Blood Count 3.97 10^6/uL (4.20-5.40); White Blood Count 6.9 10^3/uL (4.0-11.0)
[2025-04-12] MEDS: FAMOTIDINE/PF 20 MG/2 ML VIAL IV (11:22)
--- NOTE | 2025-04-12 12:06 | PM.ONB ---
Brief Operative Note Date of procedure: 04/12/25 Pre-op diagnosis general: first trimester missed Post-op diagnosis: same as pre-op Procedure: NAME OF PROCEDURE: [D&C suction ] PROCEDURE: The patient was taken back to the OR where she was given general anesthesia without difficulty. She was then placed in dorsal lithotomy position, prepped and draped in the normal sterile fashion. A weighted speculum was placed in the patient's vagina and the anterior lip of the cervix was identified and grasped with a single-tooth tenaculum. The patient was then gently dilated using Hegar dilators after we had sounded roughly to 9 cm. The suction curette was then tested. The suction curette was then placed in the patient's uterus and products of conception were removed using an 10-Mauritian suction curette. ?Excellent hemostasis was noted. The patient tolerated the procedure well. Sponge, lap, and needle counts were correct x 2. All instruments were then removed from the patient's vagina. The patient was taken to the Recovery Room in stable condition. ?? Anesthesia: MAC Surgeon: Darci Robison Estimated blood loss (mL): 5 Pathology: other (poc) Condition: stable Disposition: PACU
--- NOTE | 2025-04-12 13:17 | PC.NURSE ---
1252 PATIENT ARRIVED IN STABLE CONDITION TO PACU AWAKE AND DENIES ANY PAIN.
== END 2025-04-12 14:22 | disposition home or self-care (01) ==
PROVIDERS: PCP Family Medicine; Visit Provider Obstetrics & Gynecology
PROC: (CPT 1965; principal; 2025-04-12 10:30)
DX: O02.1 Missed abortion (principal); Z98.84 Bariatric surgery status
CPT/HCPCS: 59820; 36415; 76801; 84702; 85025; J1100; J1885; J2250; J2405; J2590; J2704; J3010; J3490